=== PATIENT | male | born 1960 | race American Indian/Alaskan Native ===

== ENCOUNTER 2020-04-30 09:03 | Outpatient (CLI) | payer MEDICARE ==
--- NOTE | 2020-04-30 10:22 | Cat Scan Report ---
CT ABDOMEN AND PELVIS WITHOUT CONTRAST INDICATION / CLINICAL INFORMATION: PROSTATE CANCER. TECHNIQUE: Axial CT images were obtained through the abdomen and pelvis without IV contrast. All CT scans at this location are performed using CT dose reduction for ALARA by means of automated exposure control. COMPARISON: None available. FINDINGS: LOWER CHEST: There are mild peribronchial tree-in-bud opacities in the left lower lobe. LIVER: No significant abnormality GALLBLADDER/BILIARY TREE: Cholecystectomy. PANCREAS: No significant abnormality SPLEEN: No significant abnormality ADRENALS: No significant abnormality KIDNEYS / URETER: There are left renal cysts. No ureteral calculus or hydronephrosis. URINARY BLADDER: No significant abnormality REPRODUCTIVE ORGANS: Prostate is enlarged. STOMACH / SMALL BOWEL: Postoperative changes of gastric bypass. Small bowel is normal in caliber. No evidence of obstruction or inflammation. COLON: The colon is unremarkable. The appendix is normal in caliber. LYMPH NODES: No significant adenopathy. VASCULATURE: Moderate atherosclerotic calcification without acute abnormality. OTHER: No free air, free fluid, or focal fluid collection is identified. Postsurgical changes of ante rior abdominal wall noted. SKELETAL SYSTEM: No acute or suspicious osseous findings. Scattered degenerative changes of the spine and hips, more pronounced on the right. IMPRESSION: 1. Prostatomegaly. No evidence of metastatic disease in the abdomen or pelvis. 2. Mild tree-in-bud opacities within the left lower lobe, may reflect atypical infectious or inflamma tory process. 3. Other chronic and postsurgical findings detailed above. Signer Name: Ramy Ibrahim MD Signed: 04/30/2020 10:17 AM Workstation Name: [id number]
--- NOTE | 2020-04-30 14:21 | Nuclear Medicine Report ---
NUCLEAR MEDICINE BONE SCAN, WHOLE BODY INDICATION / CLINICAL INFORMATION: MALIGNANT NEOPLASM OF PROSTATE. TECHNIQUE: 26.1 mCi of Tc-99m MDP were injected IV. Images were obtained of the whole body. COMPARISON: No prior bone scan available. Comparison made with recent CT on 04/30/2020. FINDINGS: ARTICULAR STRUCTURES: Mild, relatively symmetric, periarticular activity which is likely degenerative . SKELETAL LESIONS: None. SOFT TISSUES: Normal. KIDNEYS: Normal. ADDITIONAL FINDINGS: None. IMPRESSION: 1. No evidence of osseous metastatic disease. Signer Name: Syd Rivera MD Signed: 04/30/2020 2:16 PM Workstation Name: [id number]
== END 2020-04-30 09:04 | disposition home or self-care (01) ==
LOC: NM 09:03
PROVIDERS: ATTEND Urology
DX: C61 Malignant neoplasm of prostate (principal); Z90.49 Acquired absence of other specified parts of digestive tract; N28.1 Cyst of kidney, acquired; I70.0 Atherosclerosis of aorta; N40.0 Benign prostatic hyperplasia without lower urinary tract symptoms
CPT/HCPCS: 74176; 78306; A9503

== ENCOUNTER 2020-05-07 08:41 | Outpatient (CLI) | payer MEDICARE ==
[2020-05-07] MEDS ORDERED: FUROSEMIDE 20 MG/2 ML INJ ONE (09:24)
[2020-05-07] MEDS ORDERED: FUROSEMIDE 20 MG/2 ML INJ IV ONE (09:33)
--- NOTE | 2020-05-07 12:34 | Nuclear Medicine Report ---
KIDNEY IMAGING MORPHOLOGY WITH VASCULAR FLOW AND FUNCTION, SINGLE STUDY WITH LASIX INDICATION / CLINICAL INFORMATION: PROSTATE CANCER. TECHNIQUE: Following IV administration of 5.0 mCi Tc-99m-MAG3, sequential dynamic images of the kidneys were obt ained in the posterior projection. Following IV administration of Lasix, additional images were acqui red. Time activity whole kidney curves were analyzed. COMPARISON: CT abdomen/pelvis 04/30/2020 FINDINGS: There is homogeneous distribution of the radiopharmaceutical within the renal cortex of each kidney. Prominent cortical uptake is seen which is symmetric. No significant cortical or collecting system re tention. The right kidney is similar in size as the left kidney. DIFFERENTIAL FUNCTION: Right: 56% Left: 44% ERPF was not calculated. Post-Lasix imaging: No significant abnormality in urinary excretion. Additional Findings: None. IMPRESSION: 1. There is mildly asymmetric renal function, right greater than left. Percentages as above. 2. No significant cortical or collecting system retention. Prominent cortical activity/uptake bilater ally. No hydronephrosis. Signer Name: Sebas Deng MD Signed: 05/07/2020 12:29 PM Workstation Name: [id number]
== END 2020-05-07 08:42 | disposition home or self-care (01) ==
LOC: NM 08:41
PROVIDERS: ATTEND Urology
DX: C61 Malignant neoplasm of prostate (principal)
CPT/HCPCS: 78708; A9562; J1940